=== PATIENT | female | born 2000 | race Caucasian/White ===

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

== ENCOUNTER 2022-08-05 07:54 | Emergency (ER) | payer MEDICAID ==
[~2022-08-05] VITALS: Ht 162.6 cm; Wt 68.0 kg
[2022-08-05 07:55] VITALS: BP_SYST 97
--- NOTE | 2022-08-05 08:00 | NUR ---
BROUGHT BACK TO BED #7 AND TRIAGED. REPORT GIVEN TO GEOVANNY
--- NOTE | 2022-08-05 08:14 | NUR ---
ER at bedside examining patient.
--- NOTE | 2022-08-05 08:15 | NUR ---
BIB SELF FROM HOME WITH C/O SEVERE PELVIC PAIN A FEWS DAYS. PT IS AAX04, VSS, NAD, BREATHING IS EVEN AND UNLABORED, SKIN INTACT. PT IS AMBULATORY WITH STEADY GAIT, PT IN GOWN. 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 HX: N/A SAFETY PRECAUTIONS AND COMFORT MEASURES IN PLACE. HOB ELEVADED, SIDE RAILS UP, BED IN LOWEST POSITION, CALL LIGHT WITHIN REACH. PENDING MD GLASGOW AND ORDERS.
[2022-08-05 08:40] LABS: BILIRUBIN,URINE 1+ (NEGATIVE); CLARITY/URINE SL CLOUDY (CLEAR); COLOR,URINE YELLOW (YELLOW); GLUCOSE,URINE NEGATIVE (NEGATIVE); KETONES,URINE NEGATIVE (NEGATIVE); LEUKOCYTE ESTERASE ,URINE 1+ (NEGATIVE); NITRITE, URINE NEGATIVE (NEGATIVE); PROTEIN URINE 2+ (NEGATIVE); UROBILINOGEN,URINE 0.2 (0.2-1.0)
[2022-08-05 08:43] LABS: BLOOD, URINE TRACE (NEGATIVE)
[2022-08-05 09:02] LABS: BACTERIA,URINE FEW /HPF (None Seen); WBC,URINE 20-50 /HPF (0-3)
[2022-08-05] MEDS ORDERED: cefTRIAXone 250 MG VIAL IM ONE (09:15)
[2022-08-05] MEDS ORDERED: DOXYCYCLINE HYCLATE 100 MG CAPSULE PO ONE (09:15)
[2022-08-05] MEDS ORDERED: NITR-85 PO (09:15)
[2022-08-05] MEDS ORDERED: DOXY100C5 PO (09:15)
--- NOTE | 2022-08-05 09:51 | NUR ---
PT MEDICALLY CLEARED FOR D/C. D/C INSTRUCTIONS GIVEN TO PT. PT TO FOLLOW UP WITH PCP WITHIN 1-3 DAYS AND TO RETURN TO ED FOR WORSENING S/S. PT VERBALIZED UNDERSTANDING. PT AAX04, NAD, BREATHING IS EVEN AND UNLABORED, WRISTBAND REMOVED. PT AMBULATORY WITH STEADY GAIT. PT LEFT ED WITH ALL BELONINGS.
[2022-08-05 10:03] VITALS: BP_SYST 121
[2022-08-05] MEDS ORDERED: METR-154 PO (11:09)
== END 2022-08-05 09:51 | disposition home or self-care (01) ==
LOC: SED 07:54
DX: N39.0 Urinary tract infection, site not specified (principal); N76.0 Acute vaginitis; Z20.2 Contact with and (suspected) exposure to infections with a predominantly sexual mode of transmission; Z79.899 Other long term (current) drug therapy
CPT/HCPCS: 99284; 81000; 87086; 87210; 36415; 81025; 96372; 87491; J0696